=== PATIENT | female | born 1955 | race Caucasian/White ===

== ENCOUNTER 2022-09-06 08:51 | Outpatient (CLI) | payer OTHER ==
[~2022-09-06 08:51] MED LIST: ABILIFY10 MG; ATIVAN1 M1; CELEXA40 MG; LITHIUM CARBON300 M1; SAPHRIS5 MG
== END 2022-09-06 10:00 | disposition home or self-care (01) ==
LOC: WOUND MED 08:51
PROVIDERS: ATTEND Surgery
DX: L03.115 Cellulitis of right lower limb (principal); L97.912 Non-pressure chronic ulcer of unspecified part of right lower leg with fat layer exposed; I73.9 Peripheral vascular disease, unspecified; R60.0 Localized edema
CPT/HCPCS: 97602; A4927; A6219; A6223; G0463

== ENCOUNTER 2022-09-13 08:39 | Outpatient (CLI) | payer OTHER | END 2022-09-13 10:00 | disposition home or self-care (01) | LOC: WOUND MED 08:39 | PROVIDERS: ATTEND Surgery | DX: L03.115 Cellulitis of right lower limb (principal); L97.912 Non-pressure chronic ulcer of unspecified part of right lower leg with fat layer exposed | CPT/HCPCS: 97602; A4927; A6219; A6223; G0463 ==

== ENCOUNTER 2022-09-20 09:25 | Outpatient (CLI) | payer OTHER | END 2022-09-20 10:00 | disposition home or self-care (01) | LOC: WOUND MED 09:25 | PROVIDERS: ATTEND Surgery | DX: L03.115 Cellulitis of right lower limb (principal); L97.918 Non-pressure chronic ulcer of unspecified part of right lower leg with other specified severity | CPT/HCPCS: 97602; A4927; A6223; G0463 ==

== ENCOUNTER 2024-01-12 13:48 | Inpatient (IN) | payer OTHER ==
[~2024-01-12] VITALS: Ht 160 cm; Wt 133.8 kg
[2024-01-12] MEDS ORDERED: SYNTHROID75 MCG PO (14:04)
[2024-01-12] MEDS ORDERED: TETANUS & DIPHTHERIA TOX,ADULT 0.5 ML VIAL IM ONE (14:45)
[2024-01-12] MEDS ORDERED: CEFTRIAXONE SODIUM 2,000 MG VIAL IV ONE (14:45)
[2024-01-12 16:00] LABS: HEMOGLOBIN 13.3 g/dL (12.0-15.00); MEAN CORPUSCULAR HEMOGLOBIN 30.6 pg (27.00-32.0); PLATELET COUNT 177 K/uL (150-450); RED BLOOD COUNT 4.33 M/uL (4.00-6.00); RED CELL DISTRIBUTION WIDTH 14.5 % (11.5-14.5)
[2024-01-12 16:05] LABS: ERYTHROCYTE SEDIMENTATION RATE 43 mm/hr
[2024-01-12 16:34] LABS: ALBUMIN 3.6 gm/dL (3.4-5.0); BILIRUBIN TOTAL 0.79 mg/dL (0.3-1.2); CALCIUM 9.5 mg/dL (8.5-10.1); CREATININE SERUM 1.4 mg/dL (0.55-1.02); GFR 37.62; GLOBULINA 4.4 G/DL (2.4-3.5); POTASSIUM 3.8 mEq/L (3.5-5.1)
[2024-01-12 16:35] LABS: INR 1.05; PROTHROMBIN TIME 11.4 SECONDS (9.0-11.5)
[2024-01-12 17:52] LABS: URINE APPEARANCE Clear; URINE BILIRRUBIN Negative (NEGATIVE); URINE BLOOD Negative; URINE COLOR Yellow; URINE GLUCOSE Negative (NEGATIVE); URINE KETONE Negative (NEGATIVE); URINE LEUKOCYTE Negative; URINE NITRATE Negative; URINE PROTEIN Negative (NEGATIVE); URINE UROBILINOGEN 0.2 E.U./dl
[2024-01-12 17:57] LABS: URINE BACTERIA 120.9 uL (0.0-1933); URINE EPITHELIAL CELLS 4.1 uL (0.0-38.8); URINE WBC 4.9 uL (0.0-23.2)
[2024-01-12 18:07] LABS: URINE RBC 0.9 uL (0.0-20.8)
[2024-01-12] MEDS ORDERED: ACETAMINOPHEN 500 MG GEL..CAP PO PRN (18:45)
[2024-01-12] MEDS ORDERED: 0.9 % SODIUM CHLORIDE 1,000 ML IV SCH (18:45)
[2024-01-12 20:14] LABS: INR 1.06; PARTIAL THROMBOPLASTIN TIME 27.5 SECONDS (22.0-34.0); PROTHROMBIN TIME 11.5 SECONDS (9.0-11.5)
[2024-01-12 20:46] VITALS: BP 117/72; O2SAT 96
[2024-01-12] MEDS ORDERED: LORazepam 0.5 MG TABLET PO SCH (21:00)
[2024-01-12 21:54] VITALS: BP 140/67; O2SAT 99
[2024-01-13 01:01] VITALS: BP 137/74
[2024-01-13] MEDS ORDERED: LEVOTHYROXINE SODIUM 75 MCG TABLET PO SCH (06:00)
[2024-01-13 08:45] VITALS: BP 114/64; O2SAT 94
[2024-01-13] MEDS ORDERED: FAMOTIDINE/PF 20 MG in 0.9 % SODIUM CHLORIDE 8 ML IV PUSH SCH (09:00)
[2024-01-13] MEDS ORDERED: LITHIUM CARBONATE 300 MG CAPSULE PO SCH ×2 (09:00→21:00)
[2024-01-13] MEDS ORDERED: CEFTRIAXONE SODIUM 2,000 MG in 0.9 % SODIUM CHLORIDE 100 ML IV SCH (09:00)
[2024-01-13] MEDS ORDERED: PATIENTS OWN MEDICATION (MEDICAMENTO EN PISO) PO SCH ×4 (09:00→21:00)
[2024-01-13 17:23] VITALS: BP 132/71; O2SAT 97
[2024-01-13] MEDS ORDERED: DOXYCYCLINE HYCLATE 100 MG TABLET PO SCH (22:29)
[2024-01-14 01:12] VITALS: BP 110/73
[2024-01-14 08:22] VITALS: BP 105/74; O2SAT 97
[2024-01-14] MEDS ORDERED: LITHIUM CARBONATE 300 MG CAPSULE PO SCH (09:00)
[2024-01-14] MEDS ORDERED: DOXYCYCLINE HYCLATE 100 MG CAPSULE PO SCH (09:00)
[2024-01-14 17:20] VITALS: BP 111/62
[2024-01-14] MEDS ORDERED: DOCUSATE SODIUM 100MG CAP PO SCH (21:00)
[2024-01-15 00:39] VITALS: BP 128/82; O2SAT 96
[2024-01-15 08:07] LABS: HEMATOCRIT 34.8 % (36.0-45.00); HEMOGLOBIN 11.9 g/dL (12.0-15.00); MEAN CELL VOLUME 90.4 fL (80.00-100.00); MEAN CORPUSCULAR HEMOGLOBIN 30.9 pg (27.00-32.0); MEAN CORPUSCULAR HGB CONC 34.2 g/dl (32.0-36.0); PLATELET COUNT 149 K/uL (150-450); RED BLOOD COUNT 3.85 M/uL (4.00-6.00); RED CELL DISTRIBUTION WIDTH 14.5 % (11.5-14.5)
[2024-01-15 08:20] VITALS: BP 118/67; O2SAT 99
[2024-01-15 09:01] LABS: BILIRUBIN TOTAL 0.38 mg/dL (0.3-1.2); CALCIUM 8.9 mg/dL (8.5-10.1); CREATININE SERUM 1.14 mg/dL (0.55-1.02); GFR 47.69; GLOBULINA 3.5 G/DL (2.4-3.5); POTASSIUM 4.46 mEq/L (3.5-5.1); TOTAL PROTEIN 6.5 gm/dL (6.4-8.2)
[2024-01-15 16:43] VITALS: BP 166/74
[2024-01-15] MEDS ORDERED: SODIUM CHLORIDE 0.45 % 1,000 ML IV SCH (17:45)
[2024-01-16 01:33] VITALS: BP 122/66; O2SAT 96
[2024-01-16 09:05] VITALS: BP 100/57; O2SAT 98
[2024-01-16 09:17] LABS: ALBUMIN 2.7 gm/dL (3.4-5.0); BILIRUBIN TOTAL 0.38 mg/dL (0.3-1.2); CALCIUM 8.7 mg/dL (8.5-10.1); CREATININE SERUM 1.02 mg/dL (0.55-1.02); GFR 54.22; GLOBULINA 3.1 G/DL (2.4-3.5); POTASSIUM 4.28 mEq/L (3.5-5.1); TOTAL PROTEIN 5.8 gm/dL (6.4-8.2)
[2024-01-16] MEDS ORDERED: AMOX-CLAV 875-1 EACH PO (13:50)
== END 2024-01-16 15:35 | disposition home or self-care (01) | DRG 580 ==
LOC: ER 13:50 → MEDJ 19:28
PROVIDERS: General Practice; Internal Medicine; Internal Medicine Nephrology; Nurse Practitioner Family; ADMIT Internal Medicine; ATTEND Internal Medicine
PROC: B54BZZZ Ultrasonography of Right Lower Extremity Veins (ICD-10-PCS; 2024-01-12)
PROC: 0JDQ0ZZ Extraction of Right Foot Subcutaneous Tissue and Fascia, Open Approach (ICD-10-PCS; principal; 2024-01-16)
DX: L03.115 Cellulitis of right lower limb (principal); A28.0 Pasteurellosis; L97.319 Non-pressure chronic ulcer of right ankle with unspecified severity; N17.9 Acute kidney failure, unspecified; L02.415 Cutaneous abscess of right lower limb; E03.9 Hypothyroidism, unspecified; W55.01XA Bitten by cat, initial encounter; Y93.9 Activity, unspecified; Y92.9 Unspecified place or not applicable; F31.9 Bipolar disorder, unspecified; E66.9 Obesity, unspecified; L08.9 Local infection of the skin and subcutaneous tissue, unspecified; B96.89 Other specified bacterial agents as the cause of diseases classified elsewhere